=== PATIENT | male | born 1990 | race Caucasian/White ===

== ENCOUNTER 2016-09-27 17:27 | Emergency (ER) | payer SELFPAY ==
[~2016-09-27] VITALS: Ht 172.7 cm; Wt 65.8 kg
--- OUTSIDE RECORDS SUMMARY | 2016-09-27 17:33 | XMS REPORT ---
Author NEEL Seth Organization [employer] Address Unknown Phone Unavailable Care Team Providers Care Manager Branch Name Role Phone NEEL GIBBS CP Unavailable Allergies, Adverse Reactions, Alerts Substance Reaction Event Type N.K.D.A. Info Not Available Non Drug Allergy Problems Problem Type Condition Code Onset Dates Condition Status Assessment Dental caries, unspecified K02.9 Active Problem Dental caries, unspecified K02.9 Active Medications Medication Code System Code Instructions Start Date End Date Status Dosage Amoxicillin [facility] [address]-44 500 MG Orally 3 times a day Dec 05, 2014 Dec 15, 2014 1 capsules one time Ibuprofen [facility] [address]-50 800 MG Orally Three times a day Dec 05, 2014 Jan 04, 2015 1 tablet Ultram [facility] [address]-42 50 MG Orally Once a day at hs Dec 05, 2014Dec 1 tablet as needed Procedures Procedure Coding System Code Date Office Visit, New Pt., Level 3 CPT-4 82348 Dec 05, 2014 Vital Signs Date/Time: Dec 05, 2014 Temperature 98.3 F Weight 158.6 lbs Height 68 in BMI 24.11 Index Blood Pressure Diastolic 78 mmHg Blood Pressure Systolic 118 mmHg Cardiac Monitoring Heart Rate 78 bpm Results No Known Results Summary Purpose [employer] Submission
[2016-09-27] MEDS ORDERED: NS IV 1000 ML 1,000 ML IV ONE (18:24)
[2016-09-27] MEDS ORDERED: FAMOTIDINE 20MG/2ML IV (PEPCID) ONE (18:26)
[2016-09-27] MEDS ORDERED: ONDANSETRON 4 MG/2 ML (SDV) Z0FRAN IVP ONE (18:30)
[2016-09-27 18:54] LABS: BASOPHILS % (AUTO) 0 % (0-10); EOSINOPHILS # (AUTO) 0.1 10^3/uL (0.0-0.3); EOSINOPHILS % (AUTO) 1 % (0-10); LYMPHOCYTES # (AUTO) 2.4 X 10^3 (1.0-4.0); LYMPHOCYTES % (AUTO) 29 % (12-44); MEAN CORPUSCULAR HEMOGLOBIN 30 PG (25-34); MEAN CORPUSCULAR HGB CONC 34 G/DL (32-36); MEAN CORPUSCULAR VOLUME 89 FL (80-99); MEAN PLATELET VOLUME 12.1 FL (7.4-10.4); MONOCYTES # (AUTO) 0.7 X 10^3 (0.0-1.0); MONOCYTES % (AUTO) 8 % (0-12); NEUTROPHILS # (AUTO) 5.1 X 10^3 (1.8-7.8); NEUTROPHILS % (AUTO) 62 % (42-75); PLATELET COUNT 149 10^3/uL (130-400); RED BLOOD COUNT 4.61 10^6/uL (4.35-5.85); RED CELL DISTRIBUTION WIDTH 12.9 % (10.0-14.5); WHITE BLOOD COUNT 8.3 10^3/uL (4.3-11.0)
[2016-09-27 19:13] LABS: ALANINE AMINOTRANSFERASE 11 U/L (0-55); ALBUMIN 4.1 GM/DL (3.2-4.5); ANION GAP 12 MMOL/L (5-14); ASPARTATE AMINO TRANSFERASE 14 U/L (5-34); BILIRUBIN,TOTAL 0.4 MG/DL (0.1-1.0); BLOOD UREA NITROGEN 8 MG/DL (7-18); BUN/CREATININE RATIO 11; CALCIUM 9.3 MG/DL (8.5-10.1); CARBON DIOXIDE 24 MMOL/L (21-32); CHLORIDE 105 MMOL/L (98-107); CREATININE SERUM 0.74 MG/DL (0.60-1.30); GFR ESTIMATED > 60; GLUCOSE 96 MG/DL (70-105); LIPASE 19 U/L (8-78); SODIUM 141 MMOL/L (135-145); TOTAL PROTEIN 6.8 GM/DL (6.4-8.2)
[2016-09-27 19:14] LABS: BILIRUBIN,URINE NEGATIVE (NEGATIVE); KETONES,URINE NEGATIVE (NEGATIVE); LEUKOCYTE ESTERASE ,URINE NEGATIVE (NEGATIVE); NITRITE,URINE NEGATIVE (NEGATIVE); PH,URINE 8 (5-9); PROTEIN,URINE NEGATIVE (NEGATIVE); UROBILINOGEN,URINE NORMAL (NORMAL)
--- NOTE | 2016-09-27 19:15 | Diagnostic Imaging Report ---
INDICATION: Abdominal pain with nausea and emesis. FINDINGS: Overall bowel gas pattern is within normal limits. Punctate densities are seen throughout the colon which may be the result of ingested medication. There is no transition point to indicate obstruction. No free intraperitoneal gas or pneumatosis is identified. IMPRESSION: No acute abnormality is identified. Dictated by: Dictated on workstation # [id number]
[2016-09-27 19:27] LABS: SQUAMOUS EPITHELIAL CELL,UR RARE /HPF; WBC,URINE RARE /HPF
--- NOTE | 2016-09-27 19:28 | ED GI ---
General Chief Complaint: Abdominal/GI Problems Stated Complaint: VOMITING Nursing Triage Note: AMB TO ROOM REPORTS SINCE SAT HAS BEEN VOMITING ON AND OFF CAN KEEP LIQUIDS DOWN. ATE HOT WINGS LAST NIGHT VOMITED THEM. Sepsis Screen: No Definite Risk Source of Information: Patient Exam Limitations: No Limitations History of Present Illness Time Seen By Provider: 18:13 Initial Comments This 26-year-old young man presents to emergency room with complaints of nausea and vomiting 1 week intermittently. He did vomit earlier today. He has had chills without fever. Chills resolved after the first couple of days. He has been able to keep down some water and bread today. He has left upper quadrant pain prior to vomiting. Vomiting seems to relieve the pain. He has been taking Nauzene ktbk-yyl-hdgzheg which does help his nausea some. He has felt a little constipated and denies diarrhea. He has been passing some hard rabbit pellet stools with some liquid around them. He smokes tobacco and marijuana. Last marijuana use was about 2 weeks ago. He reports pain and vomiting occur about 30 minutes after eating. Allergies and Home Medications Allergies Coded Allergies: No Known Drug Allergies (Unverified , 09/27/16) Home Medications No Active Prescriptions or Reported Meds Review of Systems Constitutional: see HPI EENTM: No Symptoms Reported Respiratory: No Symptoms Reported Cardiovascular: No Symptoms Reported Gastrointestinal: See HPI Genitourinary: No Symptoms Reported Musculoskeletal: no symptoms reported Skin: no symptoms reported Psychiatric/Neurological: No Symptoms Reported Endocrine: No Symptoms Reported Past Mxqsdnv-Nkxrlu-Vrztgz Hx Patient Social History Alcohol Use: Denies Use Recreational Drug Use: Yes Drug of Choice: marijuana Smoking Status: Current Everyday Smoker Recent Foreign Travel: No Contact w/Someone Who Travel: No Recent Infectious Disease Expo: No Surgeries HX Surgeries: No Respiratory Hx Respiratory Disorders: No Cardiovascular Hx Cardiac Disorders: No Neurological Hx Neurological Disorders: No Reproductive System Hx Reproductive Disorders: No Genitourinary Hx Genitourinary Disorders: No Gastrointestinal Hx Gastrointestinal Disorders: No Musculoskeletal Hx Musculoskeletal Disorders: No Endocrine Hx Endocrine Disorders: No HEENT HX ENT Disorders: No Cancer Hx Cancer: No Psychosocial Hx Psychiatric Problems: No Integumentary HX Skin/Integumentary Disorder: No Family Medical History Significant Family History: Cancer (breast) Physical Exam Vital Signs VS - Last 72 Hours, by Label 09/27/16 09/27/16 17:43 20:09 Temp 97.6 97.6 Pulse 90 66 Resp 18 18 B/P (MAP) 121/69 Pulse Ox 97 100 O2 Delivery Room Air Room Air Capillary Refill : Less Than 3 Seconds General Appearance: WD/WN, no apparent distress HEENT: PERRL/EOMI, normal ENT inspection, pharynx normal Respiratory: normal breath sounds, no respiratory distress, no accessory muscle use Cardiovascular: regular rate, rhythm, no edema, no murmur Gastrointestinal: normal bowel sounds, soft, tenderness (upper abdomen) Extremities: normal inspection, no pedal edema Neurologic/Psychiatric: internal control specialist II-XII nml as tested, no motor/sensory deficits, alert, normal mood/affect, oriented x 3 Skin: normal color, warm/dry Progress/Results/Core Measures Results/Orders Lab Results Laboratory Tests Test 09/27/16 18:47 09/27/16 18:55 Range/Units White Blood Count 8.3 4.3-11.0 10^3/uL Red Blood Count 4.61 4.35-5.85 10^6/uL Hemoglobin 14.0 13.3-17.7 G/DL Hematocrit 41 40-54 % Mean Corpuscular Volume 89 80-99 FL Mean Corpuscular Hemoglobin 30 25-34 PG Mean Corpuscular Hemoglobin Concent 34 32-36 G/DL Red Cell Distribution Width 12.9 10.0-14.5 % Platelet Count 149 130-400 10^3/uL Mean Platelet Volume 12.1 H 7.4-10.4 FL Neutrophils (%) (Auto) 62 42-75 % Lymphocytes (%) (Auto) 29 12-44 % Monocytes (%) (Auto) 8 0-12 % Eosinophils (%) (Auto) 1 0-10 % Basophils (%) (Auto) 0 0-10 % Neutrophils # (Auto) 5.1 1.8-7.8 X 10^3 Lymphocytes # (Auto) 2.4 1.0-4.0 X 10^3 Monocytes # (Auto) 0.7 0.0-1.0 X 10^3 Eosinophils # (Auto) 0.1 0.0-0.3 10^3/uL Basophils # (Auto) 0.0 0.0-0.1 10^3/uL Sodium Level 141 135-145 MMOL/L Potassium Level 4.0 3.6-5.0 MMOL/L Chloride Level 105 98-107 MMOL/L Carbon Dioxide Level 24 21-32 MMOL/L Anion Gap 12 5-14 MMOL/L Blood Urea Nitrogen 8 7-18 MG/DL Creatinine 0.74 0.60-1.30 MG/DL Estimat Glomerular Filtration Rate > 60 BUN/Creatinine Ratio 11 Glucose Level 96 70-105 MG/DL Calcium Level 9.3 8.5-10.1 MG/DL Total Bilirubin 0.4 0.1-1.0 MG/DL Aspartate Amino Transf (AST/SGOT) 14 5-34 U/L Alanine Aminotransferase (ALT/SGPT) 11 0-55 U/L Alkaline Phosphatase 54 40-136 U/L Total Protein 6.8 6.4-8.2 GM/DL Albumin 4.1 3.2-4.5 GM/DL Lipase 19 8-78 U/L Urine Color YELLOW Urine Clarity CLEAR Urine pH 8 5-9 Urine Specific [place] 1.010 L 1.016-1.022 Urine Protein NEGATIVE NEGATIVE Urine Glucose (UA) NEGATIVE NEGATIVE Urine Ketones NEGATIVE NEGATIVE Urine Nitrite NEGATIVE NEGATIVE Urine Bilirubin NEGATIVE NEGATIVE Urine Urobilinogen NORMAL NORMAL MG/DL Urine Leukocyte Esterase NEGATIVE NEGATIVE Urine RBC (Auto) NEGATIVE NEGATIVE Urine RBC NONE /HPF Urine WBC RARE /HPF Urine Squamous Epithelial Cells RARE /HPF Urine Crystals NONE /LPF Urine Bacteria NONE /HPF Urine Casts NONE /LPF Urine Mucus NEGATIVE /LPF Urine Culture Indicated NO My Orders Orders - JESSICA LICONA MD Cbc With Automated Diff (09/27/16 18:24) Comprehensive Metabolic Panel (09/27/16 18:24) Lipase (09/27/16 18:24) Ua Culture If Indicated (09/27/16 18:24) Abdomen, Flat & Upright/Decub (09/27/16 18:24) Saline Lock/Iv-Start (09/27/16 18:24) Ns Iv 1000 Ml (Sodium Chloride 0.9%) (09/27/16 18:24) Ondansetron Injection (Zofran Injectio (09/27/16 18:30) Famotidine Injection (Pepcid Injection) (09/28/16 09:00) Famotidine Injection (Pepcid Injection) (09/27/16 18:26) Rx-Ondansetron Po (Rx-Zofran Po) (09/27/16 20:02) Medications Given in ED Vital Signs/I&O Vital Sign - Last 12Hours 09/27/16 09/27/16 17:43 20:09 Temp 97.6 97.6 Pulse 90 66 Resp 18 18 B/P (MAP) 121/69 Pulse Ox 97 100 O2 Delivery Room Air Room Air Blood Pressure Mean: 86 Progress Note : Progress Note Patient was treated with Zofran, Pepcid, and IV fluids. Workup was unremarkable. Unfortunately, patient had just eaten prior to arrival. Ultrasound was therefore not performed. Patient did feel better prior to dismissal. He was encouraged to seek out ultrasound of the gallbladder if symptoms persist. Diagnostic Imaging Diagonstic Imaging: Xray Plain Films/CT/US/NM/MRI: abdomen Comments Abdominal x-ray viewed by me and report reviewed. See report below: NAME: MONICA KO [facility] REC#: [id number] PT STATUS: REG ER : 1990 PHYSICIAN: JESISCA LICONA MD ADMIT DATE: 09/27/16/ER Signed Date of Exam: 09/27/16 ABDOMEN, FLAT & UPRIGHT/DECUB INDICATION: Abdominal pain with nausea and emesis. FINDINGS: Overall bowel gas pattern is within normal limits. Punctate densities are seen throughout the colon which may be the result of ingested medication. There is no transition point to indicate obstruction. No free intraperitoneal gas or pneumatosis is identified. IMPRESSION: No acute abnormality is identified. Dictated by: Dictated on workstation # [id number] Dict: 09/27/161910 Trans: 09/27/161914 Interpreted by: ALVARO VIRGEN MD Electronically signed by: ALVARO VIRGEN MD 09/27/161914 Departure Impression Impression: Primary Impression: Nausea and vomiting Qualified Codes: R11.2 - Nausea with vomiting, unspecified Additional Impression: Left sided abdominal pain Disposition: 01 HOME, SELF-CARE Condition: Improved Departure-Patient Inst. Decision time for Depature: 20:03 Referrals: NO,LOCAL PHYSICIAN (PCP) Primary Care Physician Patient Instructions: Acute Abdomen (Belly Pain), Adult (DC), Nausea and Vomiting, Adult Add. Discharge Instructions: continue to drink plenty of clear liquids. Dissolve Zofran (ondansetron) under the tongue every 4 hours as needed for nausea and vomiting. Consume just clear liquids tonight, then gradually advance your diet with small quantities of bland food tomorrow. This includes foods like potatoes, white rice, white chicken, bananas, toast, crackers, etc. Establish with a primary care provider as soon as possible. Return to the emergency room if symptoms worsen. All discharge instructions reviewed with patient and/or family. Voiced understanding. Scripts No Active Prescriptions or Reported Meds JESSICA LICONA MD Sep 27, 2016 19:28
[2016-09-27] MEDS ORDERED: RX-ONDANSETRON 4 MG ODT (ZOFRAN) PPK #4 SL STA (20:02)
[2016-09-27 20:09] VITALS: BP 149/102
[2016-09-28] MEDS ORDERED: FAMOTIDINE 20MG/2ML IV (PEPCID) IVP SCH (09:00)
== END 2016-09-27 20:09 | disposition home or self-care (01) ==
LOC: ER 17:29
DX: R11.2 Nausea with vomiting, unspecified (principal); R10.9 Unspecified abdominal pain; F17.200 Nicotine dependence, unspecified, uncomplicated
CPT/HCPCS: 36415; 74020; 80053; 81000; 83690; 85025; 96361; 96374; 96375

== ENCOUNTER 2017-09-03 17:59 | Emergency (ER) | payer SELFPAY ==
[~2017-09-03] VITALS: Ht 172.7 cm; Wt 63.5 kg
--- OUTSIDE RECORDS SUMMARY | 2017-09-03 18:28 | XMS REPORT ---
Author Author ESTEPHANIA LEYVA [facility] Address [address] [place] [address] Care Team Providers Care Male Impersonator Name Role Phone ESTEPHANIA LEYVA Unavailable PROBLEMS Type Condition ICD9-CM Code NAN62-OX Code Onset Dates Condition Status SNOMED Code Problem Dental caries, unspecified K02.9 Active [id number] ALLERGIES No Known Allergies ENCOUNTERS Encounter Location Date Diagnosis [facility] IN [facility] [address] [id number], [place] [address] Mar, Viral gastroenteritis A08.4 [facility] [address] [id number], [place] [address] Nov, Dental caries, unspecified K02.9 IMMUNIZATIONS No Known Immunizations SOCIAL HISTORY Never Assessed REASON FOR VISIT Vomiting and diarrhea x5 days JStrasserRN PLAN OF CARE Activity Details Follow Up prn Reason: VITAL SIGNS Height 68 in 2017-03-27 Weight 133 lbs 2017-03-27 Temperature 98.4 degrees Fahrenheit 2017-03-27 Heart Rate 88 bpm 2017-03-27 Respiratory Rate 20 2017-03-27 BMI 20.22 kg/m2 2017-03-27 Blood pressure systolic 114 mmHg 2017-03-27 Blood pressure diastolic 70 mmHg 2017-03-27 MEDICATIONS Medication Instructions Dosage Frequency Start Date End Date Duration Status Zofran ODT 4 MG Orally every 8 hrs 1 tablet on the tongue and allow to dissolve 8h Mar, 5 days Active RESULTS No Results PROCEDURES No Known procedures INSTRUCTIONS MEDICATIONS ADMINISTERED No Known Medications
[2017-09-03] MEDS ORDERED: CLIN300C11 PO (19:14)
--- NOTE | 2017-09-03 19:22 | ED EENT ---
History of Present Illness General Chief Complaint: Dental Problems/Pain Stated Complaint: R SIDE ABCESS TOOTH Source: patient Exam Limitations: no limitations History of Present Illness Date Seen by Provider: Sep 03, 2017 Time Seen by Provider: 19:15 Initial Comments Patient is a 27-year-old male who presents to the emergency room with complaints of right sided facial swelling, dental abscess, pain. He reports that the pain and swelling started on 08/30/17 and he was seen at [facility] and started on Augmentin. He continued to have swelling and pain over the weekend and was seen back at [facility] today and put on clindamycin. He denies any decreasing swelling but reports increasing pain. Timing/Duration: other (5 days) Allergies and Home Medications Allergies Coded Allergies: No Known Drug Allergies (Unverified , 09/27/16) Home Medications Hydrocodone Bit/Acetaminophen 1 Tab Tab, 1 EACH PO Q4H PRN for PAIN Prescribed by: FEMI SWENSON on 09/03/172046 Patient Home Medication List Home Medication List Reviewed: Yes Review of Systems Constitutional: see HPI; No chills, No fever, No malaise Mouth: see HPI, pain, swelling; denies bloody discharge, denies clear discharge ; other (right-sided facial swelling) Skin: see HPI, other (right-sided facial swelling) All Other Systems Reviewed Negative Unless Noted: Yes Past Foihjta-Apsrmy-Avovam Hx Past Med/Social Hx: Reviewed Nursing Past Med/Soc Hx Patient Social History Drug of Choice: marijuana Recent Foreign Travel: No Contact w/Someone Who Travel: No Past Medical History Surgeries: No Reproductive Disorders: No Genitourinary: No Gastrointestinal: No Musculoskeletal: No Endocrine: No HEENT: No Cancer: No Integumentary: No Family Medical History Reviewed Nursing Family Hx Cancer Physical Exam Vital Signs Vital Signs - First Documented 09/03/17 19:05 Temp 97.8 Pulse 101 Resp 18 B/P (MAP) 130/87 (101) Pulse Ox 98 O2 Delivery Room Air Height, Weight, BMI Height: 5'8.00" Weight: 145lbs. oz. 65.379611ly; BMI Method:Stated General Appearance: WD/WN, no apparent distress Mouth/Throat: maxillary swelling (right-sided large area of swelling. No redness or drainage noted.), other (dental caries in the lower right molars. His him this is where the infection is coming from as a abscess teeth.) Neck: non-tender, full range of motion, supple, normal inspection Cardiovascular: normal peripheral pulses, regular rate, rhythm, no edema, no gallop, no JVD, no murmur Respiratory: chest non-tender, lungs clear, normal breath sounds, no respiratory distress, no accessory muscle use Progress/Results/Core Measures Results/Orders Lab Results Laboratory Tests Test 09/03/17 19:45 Range/Units White Blood Count 9.5 4.3-11.0 10^3/uL Red Blood Count 4.00 L 4.35-5.85 10^6/uL Hemoglobin 12.6 L 13.3-17.7 G/DL Hematocrit 36 L 40-54 % Mean Corpuscular Volume 90 80-99 FL Mean Corpuscular Hemoglobin 32 25-34 PG Mean Corpuscular Hemoglobin Concent 35 32-36 G/DL Red Cell Distribution Width 12.5 10.0-14.5 % Platelet Count 167 130-400 10^3/uL Mean Platelet Volume 11.3 H 7.4-10.4 FL Neutrophils (%) (Auto) 77 H 42-75 % Lymphocytes (%) (Auto) 12 12-44 % Monocytes (%) (Auto) 11 0-12 % Eosinophils (%) (Auto) 1 0-10 % Basophils (%) (Auto) 0 0-10 % Neutrophils # (Auto) 7.3 1.8-7.8 X 10^3 Lymphocytes # (Auto) 1.1 1.0-4.0 X 10^3 Monocytes # (Auto) 1.0 0.0-1.0 X 10^3 Eosinophils # (Auto) 0.1 0.0-0.3 10^3/uL Basophils # (Auto) 0.0 0.0-0.1 10^3/uL Sodium Level 137 135-145 MMOL/L Potassium Level 4.6 3.6-5.0 MMOL/L Chloride Level 103 98-107 MMOL/L Carbon Dioxide Level 24 21-32 MMOL/L Anion Gap 10 5-14 MMOL/L Blood Urea Nitrogen 11 7-18 MG/DL Creatinine 0.69 0.60-1.30 MG/DL Estimat Glomerular Filtration Rate > 60 BUN/Creatinine Ratio 16 Glucose Level 110 H 70-105 MG/DL Lactic Acid Level 1.02 0.50-2.00 MMOL/L Calcium Level 9.3 8.5-10.1 MG/DL Total Bilirubin 0.4 0.1-1.0 MG/DL Aspartate Amino Transf (AST/SGOT) 21 5-34 U/L Alanine Aminotransferase (ALT/SGPT) 12 0-55 U/L Alkaline Phosphatase 63 40-136 U/L C-Reactive Protein High Sensitivity 14.23 H 0.00-0.50 MG/DL Total Protein 7.0 6.4-8.2 GM/DL Albumin 3.9 3.2-4.5 GM/DL My Orders Orders - FEMI SWENSON Comprehensive Metabolic Panel (09/03/17 19:24) Saline Lock/Iv-Start (09/03/17 19:24) Cbc With Automated Diff (09/03/17 19:24) Hs C Reactive Protein (09/03/17 19:24) Lactic Acid Analyzer (09/03/17 19:24) Ct Maxillofacial W (09/03/17 19:24) Fentanyl Injection (Sublimaze Injection (09/03/17 19:30) Iohexol Injection (Omnipaque 350 Mg/Ml 1 (09/03/17 19:30) Ns (Ivpb) (Sodium Chloride 0.9% Ivpb Bag (09/03/17 19:30) Ceftriaxone Injection (Rocephin Injectio (09/03/17 20:45) Medications Given in ED Current Medications Medications Dose Ordered Sig/Annetta Route Start Time Stop Time Status Last Admin Dose Admin Ceftriaxone Sodium 1000 mg/ Sodium Chloride 50 ml @ 100 mls/hr ONCE ONCE IV 09/03/17 20:45 09/03/17 21:13 DC 09/03/17 20:52 100 MLS/HR Fentanyl Citrate 50 mcg ONCE ONCE IVP 09/03/17 19:30 09/03/17 19:31 DC 09/03/17 19:45 50 MCG Iohexol 75 ml ONCE ONCE IV 09/03/17 19:30 09/03/17 19:34 DC 09/03/17 20:01 75 ML Sodium Chloride 100 ml ONCE ONCE IV 09/03/17 19:30 09/03/17 19:34 DC 09/03/17 20:01 100 ML Vital Signs/I&O 09/03/17 09/03/17 09/03/17 19:05 19:45 21:13 Temp 97.8 97.8 97.9 Pulse 101 91 Resp 18 16 B/P (MAP) 130/87 (101) 128/84 (101) Pulse Ox 98 99 O2 Delivery Room Air Room Air Progress Progress Note : Time: 20:40 Progress Note Spoke to Dr. Rodriguez at this time. He agrees with plan of care, IV Rocephin, pain control, and follow-up tomorrow at 1600 at his office. Patient agrees with plan of care, close follow-up, continuing his antibiotics prescribed by [facility], and return precautions. Departure Impression Primary Impression: Dental caries Additional Impression: Dental abscess Disposition: HOME, SELF-CARE Condition: Stable/Unchanged Departure-Patient Inst. Decision time for Depature: 20:44 Referrals: [facility] (PCP/Family) Primary Care Physician Patient Instructions: Tooth Abscess (DC) Add. Discharge Instructions: Continue the clindamycin as previously prescribed. Take medication as directed. You may use additional Tylenol and ibuprofen as needed for additional pain relief. Follow-up with Dr. Rodriguez tomorrow at 4:00. Return back to the emergency room for increased pain, swelling, discharge, worsening symptoms, or any other concerns as needed. All discharge instructions reviewed with patient and/or family. Voiced understanding. Scripts Hydrocodone Bit/Acetaminophen (Hydrocodone/Acetaminophen 5/325mg Tablet) 1 Tab Tab 1 EACH PO Q4H PRN for PAIN, #14 TAB Prov: FEMI SWENSON 09/03/17 Images Head/Face 1 - Swelling Mouth/Nose 1 - Caries FEMI SWENSON Sep 03, 2017 19:22
[2017-09-03] MEDS ORDERED: IOHEXOL 350 MG/ML 100 ML (OMNIPAQUE 350) VIAL IV ONE (19:30)
[2017-09-03] MEDS ORDERED: fentaNYL INJECTION 100 MCG/2 ML AMP IVP ONE (19:30)
[2017-09-03] MEDS ORDERED: NS 100 ML (IVPB) BAG IV ONE (19:30)
[2017-09-03 20:00] LABS: BASOPHILS % (AUTO) 0 % (0-10); EOSINOPHILS # (AUTO) 0.1 10^3/uL (0.0-0.3); EOSINOPHILS % (AUTO) 1 % (0-10); HEMATOCRIT 36 % (40-54); HEMOGLOBIN 12.6 G/DL (13.3-17.7); LYMPHOCYTES # (AUTO) 1.1 X 10^3 (1.0-4.0); LYMPHOCYTES % (AUTO) 12 % (12-44); MEAN CORPUSCULAR HEMOGLOBIN 32 PG (25-34); MEAN CORPUSCULAR HGB CONC 35 G/DL (32-36); MEAN CORPUSCULAR VOLUME 90 FL (80-99); MEAN PLATELET VOLUME 11.3 FL (7.4-10.4); MONOCYTES % (AUTO) 11 % (0-12); NEUTROPHILS # (AUTO) 7.3 X 10^3 (1.8-7.8); NEUTROPHILS % (AUTO) 77 % (42-75); PLATELET COUNT 167 10^3/uL (130-400); RED CELL DISTRIBUTION WIDTH 12.5 % (10.0-14.5); WHITE BLOOD COUNT 9.5 10^3/uL (4.3-11.0)
[2017-09-03 20:19] LABS: ALANINE AMINOTRANSFERASE 12 U/L (0-55); ALBUMIN 3.9 GM/DL (3.2-4.5); ALKALINE PHOSPHATASE 63 U/L (40-136); BILIRUBIN,TOTAL 0.4 MG/DL (0.1-1.0); BUN/CREATININE RATIO 16; CALCIUM 9.3 MG/DL (8.5-10.1); CARBON DIOXIDE 24 MMOL/L (21-32); CHLORIDE 103 MMOL/L (98-107); CREATININE SERUM 0.69 MG/DL (0.60-1.30); GFR ESTIMATED > 60; GLUCOSE 110 MG/DL (70-105); POTASSIUM 4.6 MMOL/L (3.6-5.0); SODIUM 137 MMOL/L (135-145)
--- NOTE | 2017-09-03 20:33 | Diagnostic Imaging Report ---
PROCEDURE: CT maxillofacial with contrast. TECHNIQUE: After intravenous administration of contrast, axial images were obtained through the face and reformatted into coronal and sagittal planes. INDICATION: Facial swelling and pain. COMPARISON: None. FINDINGS: There is a mass with associated lymphadenopathy deep to the masseter muscle abutting the molar region of the right mandible. This has fluid density without internal gas and measures approximately 3 x 2 cm and likely represents an evolving abscess. There is inflammation involving the masseter muscle, likely reactive myositis. There is no airway compromise. There is no CT evidence of osteomyelitis or significant tooth decay in this region. Please correlate with physical exam. The left mandibular molar appears to contain dental caries. Temporomandibular joints are normal. IMPRESSION: 1. 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 There is reactive myositis of the masseter muscle as well as reactive lymphadenopathy. Recommend followup to assure resolution. Doubtful this represents neoplasia in this age group. 2. No adjacent osteomyelitis. Dictated by: Dictated on workstation # [id number]
[2017-09-03] MEDS ORDERED: cefTRIAXone INJECTION 1,000 MG in NS (IVPB) 50 ML IV ONE (20:45)
[2017-09-03] MEDS ORDERED: ACHD5005 PO (20:47)
[2017-09-03 21:13] VITALS: BP 128/84
== END 2017-09-03 21:10 | disposition home or self-care (01) ==
LOC: EDUNIT# 17:59 → ER 18:01
DX: K04.7 Periapical abscess without sinus (principal); K02.9 Dental caries, unspecified
CPT/HCPCS: 36415; 70487; 80053; 83605; 85025; 86141; 96365; 96375

== ENCOUNTER → 2017-09-05 | Outpatient (CLI) | payer SELFPAY ==
[~2017-09-05] MED LIST: ACHD5005 PO; CLIN300C11 PO
--- NOTE | 2017-09-09 12:50 | Physician Query-Final Dx ---
SHAUN MILTON 09/09/17 1250: Clinic Account Progress/Dx Physician Query: Please give diagnosis Date of Service Sep 05, 2017 at 14:00 KEVIN BALDERAS DDS 09/10/17 1651: Clinic Account Progress/Dx Physician Query: Date of Service 09-05-17 DIAGNOSIS: Diagnosis right buccal space abcess Progress Note: 27 yo whitme present with right buccal space abcess , drained in office cultures taken and sent SHAUN MILTON Sep 09, 2017 12:50 KEVIN BALDERAS DDS Sep 10, 2017 16:51
== END ==
LOC: LABNPT 14:00
PROVIDERS: ATTEND Specialist
DX: K12.2 Cellulitis and abscess of mouth (principal)
CPT/HCPCS: 87070; 87075; 87077; 87205